=== PATIENT | male | born 1940 | race Caucasian/White ===

== ENCOUNTER 2021-03-02 17:50 | Inpatient (IN) | payer MEDICARE ==
[~2021-03-02 17:50] MED LIST: Iopamidol-370 76% 500 ML 1 ML ONE
[2021-03-02 18:50] LABS: #Eosinphils 0.1 thou/uL (0.0-0.7); #Lymphocytes 1.2 thou/uL (1.20-3.40); #Monocytes 0.4 thou/uL (0.11-0.59); %Basophils 0.4 % (0.0-1.0); %Eosinophils 1.4 % (0.0-10.0); %Lymphocytes 21.3 % (21.0-51.0); %Monocytes 6.6 % (0.0-10.0); %Neutrophils 70.4 % (42.0-75.0); Hemoglobin 12.8 g/dL (14.0-18.0); Mean Corpuscular HGB CONC 32.7 g/dL (32.0-36.0); Mean Corpuscular Hemoglobin 34.1 pg (27.0-31.0); Platelet Count 194 thou/uL (130-400); RBC Distribution Width 12.5 % (11.5-14.5); Red Blood Cell (RBC) Count 3.76 mill/uL (4.70-6.10); White Blood Cell (WBC) Count 5.7 thou/uL (4.8-10.8)
[2021-03-02 19:08] LABS: ALT (SGPT) 7 U/L (8-55); AST (SGOT) 10 U/L (5-34); Albumin 3.1 g/dL (3.4-4.8); Alkaline Phosphatase 70 U/L (40-110); Anion Gap 10 mmol/L (10-20); BUN (Urea Nitrogen) 14 mg/dL (8.4-25.7); Bilirubin, Total 0.8 mg/dL (0.2-1.2); Calc. Creatinine Clearance 0 mL/min (70-130); Calcium 8.5 mg/dL (7.8-10.44); Carbon Dioxide 28 mmol/L (23-31); Chloride 109 mmol/L (98-107); Globulin 2.7 g/dL (2.4-3.5); Glucose 110 mg/dL (83-110); Potassium 4.2 mmol/L (3.5-5.1); Protein, Total 5.8 g/dL (5.8-8.1); Sodium 143 mmol/L (136-145)
[2021-03-02] MEDS ORDERED: Ondansetron PF 4 MG/2 ML Vial IVP PRN (21:22)
[2021-03-02] MEDS ORDERED: Ondansetron ODT 4 MG TAB PO PRN (21:22)
[2021-03-02] MEDS ORDERED: Acetaminophen 325 MG TAB PO PRN (21:22)
[2021-03-02 22:05] LABS: Troponin I 0.017 ng/mL (< 0.028)
[2021-03-02 22:11] VITALS: BMI 16.8
[2021-03-03 00:03] LABS: Hemoglobin A1c 5.2 % (4.0-6.0)
[2021-03-03 00:39] LABS: Thyroid Stimulating Hormone 0.9995 uIU/mL (0.35-4.94)
[2021-03-03 05:44] LABS: #Eosinphils 0.1 thou/uL (0.0-0.7); #Lymphocytes 1.4 thou/uL (1.20-3.40); #Monocytes 0.4 thou/uL (0.11-0.59); #Neutrophils 3.1 thou/uL (1.40-6.50); %Basophils 0.6 % (0.0-1.0); %Eosinophils 1.7 % (0.0-10.0); %Lymphocytes 28.1 % (21.0-51.0); %Monocytes 7.5 % (0.0-10.0); Hemoglobin 11.5 g/dL (14.0-18.0); Mean Corpuscular HGB CONC 32.4 g/dL (32.0-36.0); Mean Corpuscular Hemoglobin 33.5 pg (27.0-31.0); Mean Platelet Volume 8.4 fL (7.4-10.4); Platelet Count 177 thou/uL (130-400); RBC Distribution Width 12.7 % (11.5-14.5); Red Blood Cell (RBC) Count 3.44 mill/uL (4.70-6.10)
[2021-03-03 06:03] LABS: Anion Gap 11 mmol/L (10-20); BUN (Urea Nitrogen) 12 mg/dL (8.4-25.7); Calc. Creatinine Clearance 66 mL/min (70-130); Calcium 8.1 mg/dL (7.8-10.44); Carbon Dioxide 22 mmol/L (23-31); Cardiac Risk 4.4 (Less than 4.5); Chloride 111 mmol/L (98-107); Cholesterol 168 mg/dl (< 200 Desired); Glucose 102 mg/dL (83-110); HDL Cholesterol 38 mg/dL (>60 Neg Risk); LDL Cholesterol, Calculated 115 mg/dL; Potassium 3.9 mmol/L (3.5-5.1); Sodium 140 mmol/L (136-145); Triglycerides 73 mg/dL (Less than 150)
[2021-03-03] MEDS ORDERED: Folic Acid 1 MG TAB PO SCH (09:00)
[2021-03-03] MEDS ORDERED: Cyanocobalamin (Vitamin B-12) 1,000 MCG TAB PO SCH (09:00)
[2021-03-03] MEDS ORDERED: Enoxaparin Sodium 40 MG/0.4 ML SYRINGE SC SCH (09:00)
[2021-03-03] MEDS: Folic Acid/Vit B Comp W-C PO SCH (09:21)
[2021-03-03] MEDS ORDERED: Lidocaine 1% (PF) 30 ML VIAL ONE (10:37)
[2021-03-03 11:52] LABS: SARS-CoV-2 PCR by NAA Not Detected (NotDetected)
[2021-03-03 12:13] LABS: Fluid, Triglycerides 12 mg/dL (Not Available); Pleural Fluid, Amylase Less than 30 U/L (Not Available); Pleural Fluid, Glucose 101 mg/dL; Pleural Fluid, LDH 83 U/L (Not Available); Pleural Fluid, Protein 2.9 g/dL
[2021-03-03 12:21] LABS: RBC Count-Automated (BF) 5170 /cu.mm; WBC/Nucleated-Auto (BF) 617 uL
[2021-03-03 12:27] LABS: Body Fluid Source Pleural Fluid
[2021-03-03 12:28] LABS: BF Color Yellow; Clarity Hazy (Clear); Tube # EDTA
[2021-03-03 12:37] LABS: BF Segmented Neutrophils 18 %; Cell Count Non Hematic 18 %; Lymphocytes 63 %
[2021-03-03] MEDS ORDERED: hydrALAZINE 20 MG/ML VIAL SLOW IVP PRN (17:11)
[2021-03-04 06:07] LABS: ALT (SGPT) Less than 7 U/L (8-55); AST (SGOT) 11 U/L (5-34); Albumin 2.8 g/dL (3.4-4.8); Alkaline Phosphatase 68 U/L (40-110); Anion Gap 11 mmol/L (10-20); BUN (Urea Nitrogen) 9 mg/dL (8.4-25.7); Bilirubin, Total 1.2 mg/dL (0.2-1.2); Calc. Creatinine Clearance 62 mL/min (70-130); Calcium 8.3 mg/dL (7.8-10.44); Carbon Dioxide 24 mmol/L (23-31); Chloride 106 mmol/L (98-107); Globulin 2.4 g/dL (2.4-3.5); Glucose 104 mg/dL (83-110); Potassium 3.7 mmol/L (3.5-5.1); Protein, Total 5.2 g/dL (5.8-8.1); Sodium 137 mmol/L (136-145)
[2021-03-04] MEDS: Enoxaparin Sodium 30 MG/0.3 ML SYRINGE SC SCH (09:26)
[2021-03-04] MEDS: Folic Acid/Vit B Comp W-C PO SCH (09:27)
[2021-03-05] MEDS ORDERED: Lactated Ringer's 500 ML IV SCH (09:00)
[2021-03-05] MEDS ORDERED: FLU VACC QS2021-22(65YR UP)/PF 240 MCG/0.7 ML SYRINGE IM ONE (09:00)
[2021-03-05] MEDS: Folic Acid/Vit B Comp W-C PO SCH (09:43)
[2021-03-05] MEDS: Enoxaparin Sodium 30 MG/0.3 ML SYRINGE SC SCH (09:44)
[2021-03-05 12:28] VITALS: BP 113/87; TEMP 97.6
== END 2021-03-05 15:31 | disposition home or self-care (01) | DRG 187 ==
LOC: ERS 17:50 → 2NO 20:42
PROVIDERS: ADMIT Family Medicine; ATTEND Family Medicine
PROC: 0W9B3ZX Drainage of Left Pleural Cavity, Percutaneous Approach, Diagnostic (ICD-10-PCS; principal; 2021-03-03)
DX: J90 Pleural effusion, not elsewhere classified (principal); R64 Cachexia; Z68.1 Body mass index [BMI] 19.9 or less, adult; I49.1 Atrial premature depolarization; F17.210 Nicotine dependence, cigarettes, uncomplicated; D51.9 Vitamin B12 deficiency anemia, unspecified; I65.22 Occlusion and stenosis of left carotid artery; Z20.822 Contact with and (suspected) exposure to COVID-19; J44.9 Chronic obstructive pulmonary disease, unspecified; R91.8 Other nonspecific abnormal finding of lung field; Z80.1 Family history of malignant neoplasm of trachea, bronchus and lung; Z82.49 Family history of ischemic heart disease and other diseases of the circulatory system; Z86.718 Personal history of other venous thrombosis and embolism
CPT/HCPCS: 36415; 71045; 71275; 80048; 80053; 80061; 82150; 82607; 82746; 82945; 83036; 83605; 83615; 83880; 83986; 84157; 84443; 84478; 84484; 85025; 85060; 85379; 87040; 87070; 87116; 87205; 87206; 88112; 88305; 88341; 88342; 89051; 93005; 93010; 93306; 93880; J1650; J2001; J7120; Q9967; U0003; U0005

== ENCOUNTER 2021-03-25 10:11 | Outpatient (CLI) | payer MEDICARE ==
[2021-03-25 12:30] LABS: Hemoglobin 13.6 g/dL (13.5-17.5); Mean Corpuscular HGB CONC 32.8 g/dL (32.0-36.0); Mean Corpuscular Hemoglobin 32.8 pg (27.0-33.0); Platelet Count 248 10x3/uL (150-450); RBC Distribution Width 13.1 % (11.5-14.5); Red Blood Cell (RBC) Count 4.15 10x6/uL (4.32-5.72); White Blood Cell (WBC) Count 7.5 10x3/uL (3.5-10.5)
[2021-03-25 12:45] LABS: Anion Gap 12 mmol/L (10-20); BUN (Urea Nitrogen) 21 mg/dL (8.4-25.7); Calc. Creatinine Clearance 0 mL/min (70-130); Calcium 9.2 mg/dL (7.8-10.44); Carbon Dioxide 29 mmol/L (23-31); Chloride 104 mmol/L (98-107); Glucose 101 mg/dL (83-110); Potassium 4.8 mmol/L (3.5-5.1); Sodium 140 mmol/L (136-145)
[2021-03-25 19:12] LABS: SARS-CoV-2 PCR by NAA Not Detected (NotDetected)
== END 2021-03-25 10:12 | disposition home or self-care (01) ==
LOC: LABBT 10:11
PROVIDERS: ATTEND Internal Medicine Critical Care Medicine
DX: Z01.812 Encounter for preprocedural laboratory examination (principal); Z20.822 Contact with and (suspected) exposure to COVID-19
CPT/HCPCS: 80048; 85027; U0003; U0005

== ENCOUNTER 2021-03-28 06:50 | Day surgery (SDC) | payer MEDICARE, OTHER ==
[2021-03-25 11:17] VITALS: BMI 16.8
[2021-03-28] MEDS ORDERED: Fentanyl 100 MCG/2 ML VIAL ONE (09:21)
[2021-03-28] MEDS ORDERED: PHENYLEPHRINE-NS 100 MCG/ML 10 ML SYRINGE ONE (11:02)
[2021-03-28] MEDS ORDERED: Glycopyrrolate 0.2 MG/ML 5 ML SYRINGE ONE (11:02)
[2021-03-28] MEDS ORDERED: PROPOFOL 200 MG/20 ML VIAL ONE (11:02)
[2021-03-28] MEDS ORDERED: Rocuronium Bromide 10 MG/ML (10ML VIAL) ONE (11:02)
[2021-03-28] MEDS ORDERED: Lidocaine 1% PF 5 ML VIAL ONE (11:02)
[2021-03-28] MEDS ORDERED: SUGAMMADEX SODIUM 200 MG/2 ML VIAL ONE (11:21)
== END 2021-03-28 13:05 | disposition home or self-care (01) ==
LOC: SDC 06:50
PROVIDERS: ATTEND Internal Medicine Critical Care Medicine
PROC: 0BDL8ZX Extraction of Left Lung, Via Natural or Artificial Opening Endoscopic, Diagnostic (ICD-10-PCS; principal; 2021-03-28)
PROC: 0BBG8ZX Excision of Left Upper Lung Lobe, Via Natural or Artificial Opening Endoscopic, Diagnostic (ICD-10-PCS; 2021-03-28)
DX: C34.12 Malignant neoplasm of upper lobe, left bronchus or lung (principal); F17.210 Nicotine dependence, cigarettes, uncomplicated; J44.9 Chronic obstructive pulmonary disease, unspecified
CPT/HCPCS: 88112; 88305; 88341; 88342; J2704; J3010

== ENCOUNTER 2021-04-07 09:56 | Outpatient (CLI) | payer MEDICARE, OTHER | END 2021-04-07 09:57 | disposition home or self-care (01) | LOC: PET 09:56 | PROVIDERS: ATTEND Internal Medicine Hematology & Oncology | DX: C34.82 Malignant neoplasm of overlapping sites of left bronchus and lung (principal); J90 Pleural effusion, not elsewhere classified; R59.0 Localized enlarged lymph nodes; I71.4 Abdominal aortic aneurysm, without rupture | CPT/HCPCS: 78815; A9552 ==

== ENCOUNTER 2021-05-10 12:27 | Outpatient (CLI) | payer MEDICARE, OTHER ==
[2021-05-10 14:19] LABS: #Eosinphils 0.2 10x3/uL (0.0-0.5); #Monocytes 0.5 10x3/uL (0.0-1.1); #Neutrophils 4.8 10x3/uL (1.5-8.4); %Basophils 0.6 % (0.0-2.0); %Eosinophils 2.2 % (0.0-6.0); %Lymphocytes 23.1 % (18.0-47.0); %Monocytes 7.2 % (0.0-10.0); %Neutrophils 66.6 % (40.0-75.0); Hemoglobin 12.6 g/dL (13.5-17.5); Mean Corpuscular HGB CONC 32.4 g/dL (32.0-36.0); Mean Corpuscular Hemoglobin 31.9 pg (27.0-33.0); Mean Corpuscular Volume 98.5 fl (81.2-95.1); Mean Platelet Volume 10.8 fl (7.4-10.4); Platelet Count 217 10x3/uL (150-450); RBC Distribution Width 12.5 % (11.5-14.5); Red Blood Cell (RBC) Count 3.95 10x6/uL (4.32-5.72); White Blood Cell (WBC) Count 7.2 10x3/uL (3.5-10.5)
[2021-05-10 14:25] LABS: Anion Gap 10 mmol/L (10-20); BUN (Urea Nitrogen) 31 mg/dL (8.4-25.7); Calc. Creatinine Clearance 0 mL/min (70-130); Calcium 9.2 mg/dL (7.8-10.44); Carbon Dioxide 31 mmol/L (23-31); Chloride 102 mmol/L (98-107); Glucose 107 mg/dL (83-110); Potassium 4.4 mmol/L (3.5-5.1); Sodium 139 mmol/L (136-145)
[2021-05-11 12:50] LABS: SARS-CoV-2 PCR by NAA Not Detected (NotDetected)
== END 2021-05-10 12:28 | disposition home or self-care (01) ==
LOC: LABBT 12:27
PROVIDERS: ATTEND Surgery
DX: Z01.812 Encounter for preprocedural laboratory examination (principal); C34.90 Malignant neoplasm of unspecified part of unspecified bronchus or lung; Z20.822 Contact with and (suspected) exposure to COVID-19
CPT/HCPCS: 80048; 85025; U0003; U0005

== ENCOUNTER 2021-05-13 08:42 | Day surgery (SDC) | payer MEDICARE, OTHER ==
[2021-05-09 13:10] VITALS: BMI 16.9
[2021-05-13] MEDS ORDERED: ceFAZolin 2 GM/DEX 5% 100 ML BAG ONE (09:27)
[2021-05-13] MEDS ORDERED: Bupivacaine PF 0.5% 30 ML VIAL ONE (11:03)
[2021-05-13] MEDS ORDERED: EPINEPHrine 1 MG/ML AMP ONE (11:03)
[2021-05-13] MEDS ORDERED: Fentanyl 100 MCG/2 ML VIAL ONE (11:09)
[2021-05-13] MEDS ORDERED: Famotidine/PF 20 mg/2ml Vial ONE (11:09)
[2021-05-13] MEDS ORDERED: Phenylephrine 10 MG/ML VIAL ONE (11:27)
[2021-05-13] MEDS ORDERED: Ondansetron PF 4 MG/2 ML Vial ONE (11:27)
[2021-05-13] MEDS ORDERED: Lidocaine 1% PF 5 ML VIAL ONE (11:27)
[2021-05-13] MEDS ORDERED: Metoclopramide HCl 10 MG/2 ML VIAL ONE (11:27)
== END 2021-05-13 13:31 | disposition home or self-care (01) ==
LOC: SDC 08:42
PROVIDERS: ATTEND Surgery
PROC: 0JH63WZ Insertion of Totally Implantable Vascular Access Device into Chest Subcutaneous Tissue and Fascia, Percutaneous Approach (ICD-10-PCS; principal; 2021-05-13)
PROC: 02HV33Z Insertion of Infusion Device into Superior Vena Cava, Percutaneous Approach (ICD-10-PCS; 2021-05-13)
DX: C34.91 Malignant neoplasm of unspecified part of right bronchus or lung (principal); C34.92 Malignant neoplasm of unspecified part of left bronchus or lung; C77.1 Secondary and unspecified malignant neoplasm of intrathoracic lymph nodes; J44.9 Chronic obstructive pulmonary disease, unspecified; Z87.891 Personal history of nicotine dependence
CPT/HCPCS: 36561; 71045; C1788; J0171; J1642; J2370; J2405; J2765; J3010; S0020; S0028

== ENCOUNTER 2021-05-24 09:12 | Inpatient (IN) | payer MEDICARE, OTHER ==
[2021-05-24 10:50] LABS: Prothrombin Time 12.8 sec (12.0-14.7)
[2021-05-24 10:51] LABS: PTT 34.7 sec (22.9-36.1)
[2021-05-24 11:02] LABS: ALT (SGPT) 18 U/L (8-55); AST (SGOT) 23 U/L (5-34); Albumin 3.2 g/dL (3.4-4.8); Alkaline Phosphatase 69 U/L (40-110); Anion Gap 12 mmol/L (10-20); BUN (Urea Nitrogen) 29 mg/dL (8.4-25.7); Bilirubin, Total 0.9 mg/dL (0.2-1.2); Calc. Creatinine Clearance 0 mL/min (70-130); Calcium 8.2 mg/dL (7.8-10.44); Carbon Dioxide 30 mmol/L (23-31); Chloride 100 mmol/L (98-107); Globulin 2.8 g/dL (2.4-3.5); Glucose 131 mg/dL (83-110); Potassium 3.7 mmol/L (3.5-5.1); Sodium 138 mmol/L (136-145)
[2021-05-24 11:10] LABS: Band 7 % (5-11); Lymphocytes 18 % (21-51); MDiff Complete? YES; Mean Corpuscular HGB CONC 32.5 g/dL (32.0-36.0); Mean Corpuscular Hemoglobin 31.5 pg (27.0-31.0); Mean Platelet Volume 8.5 fL (7.4-10.4); Monocytes 1 % (0-10); Neutrophil 67 % (42-75); Platelet Count 105 thou/uL (130-400); Platelet Morphology Comment Appears Decreased; RBC Distribution Width 11.5 % (11.5-14.5); RBC Morphology Normal; Reactive Lymphocytes 7 % (0-10); Red Blood Cell (RBC) Count 4.44 mill/uL (4.70-6.10); White Blood Cell (WBC) Count 1.4 thou/uL (4.8-10.8)
[2021-05-24] MEDS ORDERED: Cefepime 2 GM VIAL ONE ×2 (13:54)
[2021-05-24] MEDS ORDERED: Vancomycin 1 GM/200 ML BAG ONE (13:54)
[2021-05-24] MEDS ORDERED: Ondansetron PF 4 MG/2 ML Vial IVP PRN (13:57)
[2021-05-24] MEDS ORDERED: Ondansetron ODT 4 MG TAB PO PRN (13:57)
[2021-05-24] MEDS ORDERED: Ondansetron ODT 8 MG TAB PO PRN (14:40)
[2021-05-24] MEDS ORDERED: Prochlorperazine Maleate 5 MG TAB PO PRN (14:40)
[2021-05-24 18:42] LABS: SARS-CoV-2 NAA Rapid Test DETECTED (NotDetected)
[2021-05-25] MEDS: Lactated Ringer's 1,000 ML IV SCH ×4 (00:56→14:01)
[2021-05-25 07:36] LABS: #Lymphocytes 0.5 thou/uL (1.20-3.40); #Neutrophils 0.8 thou/uL (1.40-6.50); %Basophils 0.6 % (0.0-1.0); %Eosinophils 1.3 % (0.0-10.0); %Neutrophils 58.1 % (42.0-75.0); Hemoglobin 13.3 g/dL (14.0-18.0); Mean Corpuscular HGB CONC 33.6 g/dL (32.0-36.0); Mean Corpuscular Hemoglobin 32.4 pg (27.0-31.0); Mean Corpuscular Volume 96.4 fL (78.0-98.0); Mean Platelet Volume 8.6 fL (7.4-10.4); Platelet Count 73 thou/uL (130-400); RBC Distribution Width 11.5 % (11.5-14.5); White Blood Cell (WBC) Count 1.4 thou/uL (4.8-10.8)
[2021-05-25 07:50] LABS: ALT (SGPT) 13 U/L (8-55); AST (SGOT) 24 U/L (5-34); Albumin 2.7 g/dL (3.4-4.8); Alkaline Phosphatase 58 U/L (40-110); Anion Gap 11 mmol/L (10-20); BUN (Urea Nitrogen) 20 mg/dL (8.4-25.7); Bilirubin, Total 0.8 mg/dL (0.2-1.2); Calc. Creatinine Clearance 57 mL/min (70-130); Calcium 7.9 mg/dL (7.8-10.44); Carbon Dioxide 27 mmol/L (23-31); Chloride 102 mmol/L (98-107); Globulin 2.9 g/dL (2.4-3.5); Glucose 106 mg/dL (83-110); Potassium 3.3 mmol/L (3.5-5.1); Protein, Total 5.6 g/dL (5.8-8.1); Sodium 137 mmol/L (136-145)
[2021-05-25] MEDS ORDERED: Enoxaparin Sodium 40 MG/0.4 ML SYRINGE SC SCH (09:00)
[2021-05-25] MEDS ORDERED: FLU VACC QS2021-22(65YR UP)/PF 240 MCG/0.7 ML SYRINGE IM ONE (09:00)
[2021-05-25] MEDS ORDERED: Potassium Chloride 20 MEQ TAB PO SCH (09:15)
[2021-05-25 09:39] LABS: Magnesium 1.4 mg/dL (1.6-2.6)
[2021-05-25 09:41] LABS: Phosphorus 1.6 mg/dL (2.3-4.7)
[2021-05-25] MEDS ORDERED: Magnesium 2 GM/50 ML 2 GM in Premix Bag 1 BAG IVPB SCH (10:30)
[2021-05-25] MEDS ORDERED: Potassium Phosphate 12 MMOL in Sodium Chloride 0.9% 100 ML IVPB SCH (10:30)
[2021-05-25] MEDS: Folic Acid 1 MG TAB PO SCH (10:47)
[2021-05-25] MEDS ORDERED: Megestrol Acetate 800 MG/20 ML UDCUP PO SCH (11:45)
[2021-05-25] MEDS ORDERED: predniSONE 20 MG TAB PO SCH (11:45)
[2021-05-25] MEDS ORDERED: prednisoLONE 10 MG ODT TAB PO SCH (12:00)
[2021-05-25] MEDS ORDERED: Megestrol Acetate 40 MG TAB PO SCH (15:00)
[2021-05-26] MEDS: Lactated Ringer's 1,000 ML IV SCH ×5 (04:35→21:32)
[2021-05-26 06:30] LABS: #Lymphocytes 0.6 thou/uL (1.20-3.40); %Basophils 0.9 % (0.0-1.0); %Eosinophils 0.7 % (0.0-10.0); %Lymphocytes 37.4 % (21.0-51.0); %Monocytes 0.9 % (0.0-10.0); %Neutrophils 60.2 % (42.0-75.0); Hemoglobin 13.2 g/dL (14.0-18.0); Mean Corpuscular HGB CONC 33.4 g/dL (32.0-36.0); Mean Corpuscular Hemoglobin 32.1 pg (27.0-31.0); Mean Platelet Volume 9.2 fL (7.4-10.4); Platelet Count 57 thou/uL (130-400); RBC Distribution Width 11.6 % (11.5-14.5); Red Blood Cell (RBC) Count 4.12 mill/uL (4.70-6.10); White Blood Cell (WBC) Count 1.7 thou/uL (4.8-10.8)
[2021-05-26 06:40] LABS: ALT (SGPT) 13 U/L (8-55); AST (SGOT) 28 U/L (5-34); Albumin 2.6 g/dL (3.4-4.8); Alkaline Phosphatase 58 U/L (40-110); Anion Gap 15 mmol/L (10-20); BUN (Urea Nitrogen) 19 mg/dL (8.4-25.7); Bilirubin, Total 0.7 mg/dL (0.2-1.2); Calc. Creatinine Clearance 59 mL/min (70-130); Calcium 8.1 mg/dL (7.8-10.44); Carbon Dioxide 21 mmol/L (23-31); Chloride 101 mmol/L (98-107); Globulin 3.1 g/dL (2.4-3.5); Glucose 109 mg/dL (83-110); Potassium 3.6 mmol/L (3.5-5.1); Protein, Total 5.7 g/dL (5.8-8.1); Sodium 133 mmol/L (136-145)
[2021-05-26] MEDS ORDERED: predniSONE 20 MG TAB PO SCH (08:00)
[2021-05-26] MEDS: Folic Acid 1 MG TAB PO SCH ×2 (08:43→09:02)
[2021-05-26] MEDS: Megestrol Acetate 800 MG/20 ML UDCUP PO SCH ×2 (08:43→09:02)
[2021-05-26] MEDS: prednisoLONE 10 MG ODT TAB PO SCH ×2 (08:43→09:02)
[2021-05-26 08:56] LABS: Magnesium 2.1 mg/dL (1.6-2.6)
[2021-05-26 09:02] LABS: Phosphorus 1.4 mg/dL (2.3-4.7)
[2021-05-26] MEDS ORDERED: Magnesium 2 GM/50 ML 2 GM in Premix Bag 1 BAG IVPB SCH (09:30)
[2021-05-26] MEDS ORDERED: Potassium Phosphate 22 MMOL in Sodium Chloride 0.9% 250 ML 250 ML IVPB SCH (09:45)
[2021-05-26] MEDS ORDERED: Guaifenesin DM 100-10/5 ML UDCUP PO PRN (10:51)
[2021-05-26] MEDS: Mometasone 200 MCG/Formoterol 5 MCG 120 PUFF INHALER INH SCH ×3 (11:05→18:43)
[2021-05-26] MEDS: PHOS-NAK 1 PKT PACK PO SCH ×2 (14:24→21:32)
[2021-05-26] MEDS ORDERED: Mometasone 200 MCG/Formoterol 5 MCG 120 PUFF INHALER INH SCH (18:30)
[2021-05-27] MEDS: Mometasone 200 MCG/Formoterol 5 MCG 120 PUFF INHALER INH SCH ×2 (06:20→18:30)
[2021-05-27] MEDS: Lactated Ringer's 1,000 ML IV SCH ×3 (06:20→20:42)
[2021-05-27] MEDS: PHOS-NAK 1 PKT PACK PO SCH ×4 (08:52→20:54)
[2021-05-27] MEDS: prednisoLONE 10 MG ODT TAB PO SCH (08:52)
[2021-05-27] MEDS: Folic Acid 1 MG TAB PO SCH (08:52)
[2021-05-27] MEDS: Megestrol Acetate 800 MG/20 ML UDCUP PO SCH (08:52)
[2021-05-27 09:22] LABS: Hemoglobin 10.9 g/dL (14.0-18.0); Mean Corpuscular HGB CONC 33.7 g/dL (32.0-36.0); Mean Corpuscular Hemoglobin 32.3 pg (27.0-31.0); Mean Corpuscular Volume 95.6 fL (78.0-98.0); Mean Platelet Volume 10.3 fL (7.4-10.4); Platelet Count 27 thou/uL (130-400); RBC Distribution Width 11.4 % (11.5-14.5); Red Blood Cell (RBC) Count 3.38 mill/uL (4.70-6.10); White Blood Cell (WBC) Count 1.2 thou/uL (4.8-10.8)
[2021-05-27 09:30] LABS: ALT (SGPT) 12 U/L (8-55); AST (SGOT) 22 U/L (5-34); Albumin 2.3 g/dL (3.4-4.8); Alkaline Phosphatase 45 U/L (40-110); Anion Gap 13 mmol/L (10-20); BUN (Urea Nitrogen) 22 mg/dL (8.4-25.7); Bilirubin, Total 0.7 mg/dL (0.2-1.2); Calc. Creatinine Clearance 63 mL/min (70-130); Calcium 7.6 mg/dL (7.8-10.44); Carbon Dioxide 25 mmol/L (23-31); Chloride 99 mmol/L (98-107); Globulin 2.5 g/dL (2.4-3.5); Glucose 102 mg/dL (83-110); Protein, Total 4.8 g/dL (5.8-8.1); Sodium 134 mmol/L (136-145)
[2021-05-27 09:33] LABS: Potassium 2.9 mmol/L (3.5-5.1)
[2021-05-27] MEDS ORDERED: Potassium Phosphate 30 MMOL in Sodium Chloride 0.9% 500 ML IVPB SCH (10:30)
[2021-05-27 10:40] LABS: Band 4 % (5-11); Lymphocytes 34 % (21-51); MDiff Complete? YES; Monocytes 4 % (0-10); Neutrophil 34 % (42-75); Ovalocytes SLIGHT = 2-5 cells (100X) (0-1/hpf); Platelet Morphology Comment Appears Decreased; Polychromasia SLIGHT = 2-3 cells (100X) (0-2/hpf); Reactive Lymphocytes 24 % (0-10)
[2021-05-27 11:07] LABS: Magnesium 1.8 mg/dL (1.6-2.6)
[2021-05-27] MEDS: Potassium Chloride 10 MEQ in Premix Bag 1 BAG IVPB SCH ×4 (11:19→16:59)
[2021-05-27 11:20] LABS: Phosphorus 1.5 mg/dL (2.3-4.7)
[2021-05-27] MEDS ORDERED: Magnesium 2 GM/50 ML 2 GM in Premix Bag 1 BAG IVPB SCH (14:45)
[2021-05-27 17:45] LABS: ALT (SGPT) 11 U/L (8-55); AST (SGOT) 22 U/L (5-34); Albumin 2.4 g/dL (3.4-4.8); Alkaline Phosphatase 44 U/L (40-110); Anion Gap 10 mmol/L (10-20); BUN (Urea Nitrogen) 24 mg/dL (8.4-25.7); Bilirubin, Total 0.5 mg/dL (0.2-1.2); Calc. Creatinine Clearance 66 mL/min (70-130); Calcium 7.7 mg/dL (7.8-10.44); Carbon Dioxide 27 mmol/L (23-31); Chloride 100 mmol/L (98-107); Globulin 2.4 g/dL (2.4-3.5); Glucose 116 mg/dL (83-110); Protein, Total 4.8 g/dL (5.8-8.1); Sodium 133 mmol/L (136-145)
[2021-05-27 17:58] LABS: Phosphorus 3.4 mg/dL (2.3-4.7)
[2021-05-27 18:45] LABS: Magnesium 1.5 mg/dL (1.6-2.6)
[2021-05-27] MEDS: Acetaminophen 500 MG TAB PO SCH ×2 (20:41→20:53)
[2021-05-27] MEDS ORDERED: Acetaminophen 650 MG Suppository PR SCH (21:15)
[2021-05-27] MEDS ORDERED: Pantoprazole 40 MG VIAL IVP SCH (22:30)
[2021-05-28] MEDS ORDERED: Acetaminophen 650 MG Suppository PR SCH (01:45)
[2021-05-28 03:03] LABS: #Lymphocytes 0.3 thou/uL (1.20-3.40); #Monocytes 0.1 thou/uL (0.11-0.59); #Neutrophils 0.9 thou/uL (1.40-6.50); %Eosinophils 1.2 % (0.0-10.0); %Lymphocytes 22.9 % (21.0-51.0); %Monocytes 5.4 % (0.0-10.0); %Neutrophils 70.5 % (42.0-75.0); Hemoglobin 8.3 g/dL (14.0-18.0); Mean Corpuscular HGB CONC 33.8 g/dL (32.0-36.0); Mean Corpuscular Hemoglobin 32.6 pg (27.0-31.0); Mean Corpuscular Volume 96.7 fL (78.0-98.0); Platelet Count 17 thou/uL (130-400); RBC Distribution Width 11.5 % (11.5-14.5); Red Blood Cell (RBC) Count 2.53 mill/uL (4.70-6.10); White Blood Cell (WBC) Count 1.2 thou/uL (4.8-10.8)
[2021-05-28 03:30] LABS: ALT (SGPT) 11 U/L (8-55); AST (SGOT) 20 U/L (5-34); Albumin 2.1 g/dL (3.4-4.8); Alkaline Phosphatase 39 U/L (40-110); Anion Gap 15 mmol/L (10-20); BUN (Urea Nitrogen) 35 mg/dL (8.4-25.7); Bilirubin, Total 0.5 mg/dL (0.2-1.2); Calc. Creatinine Clearance 55 mL/min (70-130); Calcium 7.3 mg/dL (7.8-10.44); Carbon Dioxide 25 mmol/L (23-31); Chloride 100 mmol/L (98-107); Globulin 2.1 g/dL (2.4-3.5); Glucose 150 mg/dL (83-110); Potassium 3.8 mmol/L (3.5-5.1); Protein, Total 4.2 g/dL (5.8-8.1); Sodium 136 mmol/L (136-145)
[2021-05-28] MEDS ORDERED: Acetaminophen 325 MG/10.15 ML UDCUP PO PRN (06:10)
[2021-05-28] MEDS ORDERED: Acetaminophen 325 MG Suppository PR PRN (06:10)
[2021-05-28] MEDS: Mometasone 200 MCG/Formoterol 5 MCG 120 PUFF INHALER INH SCH ×2 (06:22→20:54)
[2021-05-28] MEDS: Lactated Ringer's 1,000 ML IV SCH ×3 (06:22→15:38)
[2021-05-28 07:35] LABS: Hemoglobin 7.9 g/dL (14.0-18.0); Platelet Count 60 thou/uL (130-400)
[2021-05-28] MEDS ORDERED: TBO-Filgrastim 300 MCG/0.5 ML VIAL SC SCH (08:45)
[2021-05-28] MEDS: Pantoprazole 40 MG VIAL IVP SCH ×2 (10:10→21:10)
[2021-05-28] MEDS: PHOS-NAK 1 PKT PACK PO SCH ×3 (10:10→21:10)
[2021-05-28] MEDS: Folic Acid 1 MG TAB PO SCH (10:11)
[2021-05-28] MEDS: Megestrol Acetate 800 MG/20 ML UDCUP PO SCH (10:11)
[2021-05-28] MEDS: prednisoLONE 10 MG ODT TAB PO SCH (10:36)
[2021-05-28 17:04] LABS: Hemoglobin 6.9 g/dL (14.0-18.0); Platelet Count 48 thou/uL (130-400)
[2021-05-29] MEDS: Lactated Ringer's 1,000 ML IV SCH ×3 (05:19→21:45)
[2021-05-29 05:34] LABS: Hemoglobin 7.9 g/dL (14.0-18.0); Platelet Count 76 thou/uL (130-400)
[2021-05-29 05:53] LABS: Hemoglobin 7.7 g/dL (14.0-18.0); Hypochromia SLIGHT = 6-15 cells (100X) (0-5/hpf); Lymphocytes 36 % (21-51); MDiff Complete? YES; Mean Corpuscular HGB CONC 33.9 g/dL (32.0-36.0); Mean Corpuscular Hemoglobin 32.1 pg (27.0-31.0); Mean Corpuscular Volume 94.7 fL (78.0-98.0); Mean Platelet Volume 7.4 fL (7.4-10.4); Neutrophil 64 % (42-75); Platelet Count 75 thou/uL (130-400); Platelet Morphology Comment Appears Decreased; RBC Distribution Width 12.2 % (11.5-14.5); White Blood Cell (WBC) Count 1.1 thou/uL (4.8-10.8)
[2021-05-29] MEDS: Mometasone 200 MCG/Formoterol 5 MCG 120 PUFF INHALER INH SCH ×2 (05:58→20:37)
[2021-05-29 05:59] LABS: ALT (SGPT) 13 U/L (8-55); AST (SGOT) 24 U/L (5-34); Albumin 2.3 g/dL (3.4-4.8); Alkaline Phosphatase 41 U/L (40-110); Anion Gap 8 mmol/L (10-20); BUN (Urea Nitrogen) 29 mg/dL (8.4-25.7); Bilirubin, Total 1.5 mg/dL (0.2-1.2); Calc. Creatinine Clearance 60 mL/min (70-130); Calcium 7.6 mg/dL (7.8-10.44); Carbon Dioxide 27 mmol/L (23-31); Chloride 107 mmol/L (98-107); Globulin 2.2 g/dL (2.4-3.5); Glucose 108 mg/dL (83-110); Potassium 3.2 mmol/L (3.5-5.1); Protein, Total 4.5 g/dL (5.8-8.1); Sodium 139 mmol/L (136-145)
[2021-05-29] MEDS ORDERED: Magnesium 2 GM/50 ML 2 GM in Premix Bag 1 BAG IVPB SCH (07:00)
[2021-05-29] MEDS ORDERED: Potassium Phosphate 30 MMOL in Sodium Chloride 0.9% 250 ML 250 ML IVPB SCH (07:30)
[2021-05-29] MEDS: Folic Acid 1 MG TAB PO SCH (08:40)
[2021-05-29] MEDS: PHOS-NAK 1 PKT PACK PO SCH ×3 (08:40→21:46)
[2021-05-29] MEDS: prednisoLONE 10 MG ODT TAB PO SCH (08:40)
[2021-05-29] MEDS: Megestrol Acetate 800 MG/20 ML UDCUP PO SCH (08:40)
[2021-05-29] MEDS: Pantoprazole 40 MG VIAL IVP SCH ×2 (08:40→21:46)
[2021-05-29] MEDS: Polyethylene Glycol 3350 17 GM Packet PO SCH (08:40)
[2021-05-29] MEDS: Multivitamins CHEW w/Iron Tablet PO SCH (08:40)
[2021-05-29] MEDS ORDERED: Calcium Chloride 1 GM/10 ML Abboject SYRINGE IVP SCH (09:15)
[2021-05-29 13:34] LABS: Hemoglobin 8.1 g/dL (14.0-18.0); Platelet Count 81 thou/uL (130-400)
[2021-05-29] MEDS: Amino Acids 4.25 %/Dextrose 5% 1,000 ML IV SCH (22:56)
[2021-05-29 23:13] LABS: Hemoglobin 6.8 g/dL (14.0-18.0); Platelet Count 56 thou/uL (130-400)
[2021-05-30] MEDS: Mometasone 200 MCG/Formoterol 5 MCG 120 PUFF INHALER INH SCH ×2 (05:53→20:28)
[2021-05-30] MEDS ORDERED: Furosemide 20 MG/2 ML VIAL SLOW IVP SCH (09:00)
[2021-05-30] MEDS ORDERED: Potassium Chloride 20 MEQ in Premix Bag 1 BAG IVPB SCH ×3 (09:00→17:45)
[2021-05-30] MEDS: Pantoprazole 40 MG VIAL IVP SCH ×2 (09:18→21:20)
[2021-05-30] MEDS: Polyethylene Glycol 3350 17 GM Packet PO SCH (09:18)
[2021-05-30] MEDS: PHOS-NAK 1 PKT PACK PO SCH ×3 (09:18→21:20)
[2021-05-30] MEDS: Folic Acid 1 MG TAB PO SCH (09:18)
[2021-05-30] MEDS: Megestrol Acetate 800 MG/20 ML UDCUP PO SCH (09:18)
[2021-05-30] MEDS: prednisoLONE 10 MG ODT TAB PO SCH (09:18)
[2021-05-30] MEDS: Multivitamins CHEW w/Iron Tablet PO SCH (09:19)
[2021-05-30 09:49] LABS: Hemoglobin 8.5 g/dL (14.0-18.0); Platelet Count 47 thou/uL (130-400)
[2021-05-30 15:37] LABS: Hemoglobin 9.7 g/dL (14.0-18.0); Platelet Count 100 thou/uL (130-400)
[2021-05-30 15:57] LABS: Anion Gap 12 mmol/L (10-20); BUN (Urea Nitrogen) 20 mg/dL (8.4-25.7); Calc. Creatinine Clearance 54 mL/min (70-130); Calcium 8.3 mg/dL (7.8-10.44); Carbon Dioxide 28 mmol/L (23-31); Chloride 99 mmol/L (98-107); Glucose 104 mg/dL (83-110); Potassium 3.3 mmol/L (3.5-5.1); Sodium 136 mmol/L (136-145)
[2021-05-30 16:09] LABS: ALT (SGPT) 23 U/L (8-55); AST (SGOT) 39 U/L (5-34); Albumin 2.9 g/dL (3.4-4.8); Alkaline Phosphatase 56 U/L (40-110); Anion Gap 12 mmol/L (10-20); BUN (Urea Nitrogen) 20 mg/dL (8.4-25.7); Bilirubin, Total 0.8 mg/dL (0.2-1.2); Calc. Creatinine Clearance 52 mL/min (70-130); Calcium 8.3 mg/dL (7.8-10.44); Carbon Dioxide 28 mmol/L (23-31); Chloride 98 mmol/L (98-107); Glucose 105 mg/dL (83-110); Magnesium 1.4 mg/dL (1.6-2.6); Phosphorus 1.7 mg/dL (2.3-4.7); Potassium 3.2 mmol/L (3.5-5.1); Protein, Total 5.9 g/dL (5.8-8.1); Sodium 135 mmol/L (136-145)
[2021-05-30] MEDS: Amino Acids 4.25 %/Dextrose 5% 1,000 ML IV SCH (17:05)
[2021-05-30] MEDS ORDERED: Potassium Chloride 10 MEQ in Premix Bag 1 BAG IVPB SCH (18:00)
[2021-05-30] MEDS ORDERED: Morphine 4 MG/ML VIAL SLOW IVP SCH (22:00)
[2021-05-30 22:26] LABS: Hemoglobin 8.8 g/dL (14.0-18.0); Platelet Count 87 thou/uL (130-400)
[2021-05-30 22:49] LABS: ALT (SGPT) 24 U/L (8-55); AST (SGOT) 38 U/L (5-34); Albumin 2.6 g/dL (3.4-4.8); Alkaline Phosphatase 51 U/L (40-110); Anion Gap 11 mmol/L (10-20); BUN (Urea Nitrogen) 18 mg/dL (8.4-25.7); Bilirubin, Total 0.7 mg/dL (0.2-1.2); Calc. Creatinine Clearance 56 mL/min (70-130); Calcium 7.9 mg/dL (7.8-10.44); Carbon Dioxide 26 mmol/L (23-31); Chloride 99 mmol/L (98-107); Globulin 2.7 g/dL (2.4-3.5); Glucose 128 mg/dL (83-110); Lipase 7 U/L (8-78); Potassium 3.1 mmol/L (3.5-5.1); Protein, Total 5.3 g/dL (5.8-8.1); Sodium 133 mmol/L (136-145)
[2021-05-31] MEDS ORDERED: hydrOXYzine 10 MG TAB PO SCH (04:30)
[2021-05-31] MEDS: Mometasone 200 MCG/Formoterol 5 MCG 120 PUFF INHALER INH SCH (05:27)
[2021-05-31 06:15] LABS: Band 12 % (5-11); Hemoglobin 9.6 g/dL (14.0-18.0); Hypochromia SLIGHT = 6-15 cells (100X) (0-5/hpf); Lymphocytes 56 % (21-51); MDiff Complete? YES; Mean Corpuscular HGB CONC 35.3 g/dL (32.0-36.0); Mean Corpuscular Hemoglobin 32.6 pg (27.0-31.0); Mean Corpuscular Volume 92.5 fL (78.0-98.0); Mean Platelet Volume 7.3 fL (7.4-10.4); Monocytes 4 % (0-10); Neutrophil 28 % (42-75); Platelet Count 85 thou/uL (130-400); Platelet Morphology Comment Appears Decreased; RBC Distribution Width 12.8 % (11.5-14.5); Red Blood Cell (RBC) Count 2.94 mill/uL (4.70-6.10); White Blood Cell (WBC) Count 1.1 thou/uL (4.8-10.8)
[2021-05-31 06:22] LABS: ALT (SGPT) 25 U/L (8-55); AST (SGOT) 37 U/L (5-34); Albumin 2.6 g/dL (3.4-4.8); Alkaline Phosphatase 55 U/L (40-110); Anion Gap 10 mmol/L (10-20); BUN (Urea Nitrogen) 19 mg/dL (8.4-25.7); Bilirubin, Total 0.6 mg/dL (0.2-1.2); Calc. Creatinine Clearance 54 mL/min (70-130); Calcium 8.2 mg/dL (7.8-10.44); Carbon Dioxide 27 mmol/L (23-31); Chloride 97 mmol/L (98-107); Glucose 138 mg/dL (83-110); Magnesium 1.4 mg/dL (1.6-2.6); Potassium 3.4 mmol/L (3.5-5.1); Protein, Total 5.6 g/dL (5.8-8.1); Sodium 131 mmol/L (136-145)
[2021-05-31 06:25] LABS: Phosphorus 1.6 mg/dL (2.3-4.7)
[2021-05-31] MEDS ORDERED: Albuterol 200 PUFF (6.7GM INHALER) INH SCH (08:45)
[2021-05-31] MEDS: prednisoLONE 10 MG ODT TAB PO SCH (09:27)
[2021-05-31] MEDS: Pantoprazole 40 MG VIAL IVP SCH ×2 (09:27→21:56)
[2021-05-31] MEDS: PHOS-NAK 1 PKT PACK PO SCH ×3 (09:27→21:55)
[2021-05-31] MEDS: Folic Acid 1 MG TAB PO SCH (09:27)
[2021-05-31] MEDS: Megestrol Acetate 800 MG/20 ML UDCUP PO SCH (09:41)
[2021-05-31] MEDS: Polyethylene Glycol 3350 17 GM Packet PO SCH (09:42)
[2021-05-31] MEDS: Multivitamins CHEW w/Iron Tablet PO SCH (09:42)
[2021-05-31] MEDS ORDERED: Potassium Chloride 20 MEQ in Premix Bag 1 BAG IVPB SCH ×2 (10:45→20:15)
[2021-05-31] MEDS: Potassium Chloride 10 MEQ in Premix Bag 1 BAG IVPB SCH ×3 (11:10→13:39)
[2021-05-31] MEDS ORDERED: Metoprolol Tartrate 25 MG TAB PO SCH (11:30)
[2021-05-31] MEDS ORDERED: Magnesium 2 GM/50 ML 2 GM in Premix Bag 1 BAG IVPB SCH (12:00)
[2021-05-31] MEDS ORDERED: Diltiazem HCl 125 MG, Admixture Fee 1 EACH in Sodium Chloride 0.9% 100 ML IVPB SCH (12:15)
[2021-05-31] MEDS ORDERED: Diltiazem 125 MG in Sodium Chloride 0.9% 100 ML IVPB SCH (12:30)
[2021-05-31] MEDS ORDERED: ADENOSINE 60 MG/20 ML VIAL IVP SCH (12:30)
[2021-05-31] MEDS ORDERED: Digoxin 0.5 MG/2 ML AMP ONE (12:41)
[2021-05-31 12:50] LABS: Hemoglobin 10.1 g/dL (14.0-18.0); Mean Corpuscular HGB CONC 34.6 g/dL (32.0-36.0); Mean Corpuscular Hemoglobin 31.8 pg (27.0-31.0); Mean Corpuscular Volume 91.9 fL (78.0-98.0); Mean Platelet Volume 7.5 fL (7.4-10.4); Platelet Count 87 thou/uL (130-400); RBC Distribution Width 12.7 % (11.5-14.5); Red Blood Cell (RBC) Count 3.17 mill/uL (4.70-6.10); White Blood Cell (WBC) Count 0.9 thou/uL (4.8-10.8)
[2021-05-31 13:03] LABS: Anion Gap 14 mmol/L (10-20); BUN (Urea Nitrogen) 19 mg/dL (8.4-25.7); Calc. Creatinine Clearance 54 mL/min (70-130); Calcium 8.3 mg/dL (7.8-10.44); Carbon Dioxide 24 mmol/L (23-31); Chloride 95 mmol/L (98-107); Glucose 101 mg/dL (83-110); Magnesium 1.3 mg/dL (1.6-2.6); Potassium 3.1 mmol/L (3.5-5.1); Sodium 130 mmol/L (136-145)
[2021-05-31 13:08] LABS: Band 17 % (5-11); Dohle Bodies SLIGHT; Lymphocytes 27 % (21-51); MDiff Complete? YES; Metamyelocyte 1 % (0-0); Monocytes 12 % (0-10); Myelocyte 1 % (0-0); Neutrophil 36 % (42-75); Platelet Morphology Comment Appears Decreased; Polychromasia SLIGHT = 2-3 cells (100X) (0-2/hpf); Reactive Lymphocytes 6 % (0-10); Toxic Granulation SLIGHT; Vacuoles SLIGHT
[2021-05-31 13:14] LABS: Phosphorus 1.7 mg/dL (2.3-4.7)
[2021-05-31] MEDS ORDERED: Digoxin 0.5 MG/2 ML AMP SLOW IVP SCH ×6 (13:15→17:00)
[2021-05-31] MEDS ORDERED: Potassium Phosphate 15 MMOL in Sodium Chloride 0.9% 250 ML 250 ML IVPB SCH (13:30)
[2021-05-31 13:34] LABS: CKMB 3.4 ng/mL (0-6.6)
[2021-05-31 13:43] LABS: Hemoglobin 9.7 g/dL (14.0-18.0); Platelet Count 73 thou/uL (130-400)
[2021-05-31] MEDS ORDERED: Amiodarone 150 MG, Admixture Fee 1 EACH in Dextrose 5% in Water 100 ML IVPB SCH (15:45)
[2021-05-31 19:39] LABS: Anion Gap 14 mmol/L (10-20); BUN (Urea Nitrogen) 18 mg/dL (8.4-25.7); Calc. Creatinine Clearance 52 mL/min (70-130); Calcium 8.1 mg/dL (7.8-10.44); Carbon Dioxide 25 mmol/L (23-31); Chloride 96 mmol/L (98-107); Glucose 121 mg/dL (83-110); Magnesium 2.2 mg/dL (1.6-2.6); Potassium 3.3 mmol/L (3.5-5.1); Sodium 132 mmol/L (136-145)
[2021-05-31 19:41] LABS: Troponin I 3.782 ng/mL (< 0.028)
[2021-05-31 21:48] LABS: Hemoglobin 9.3 g/dL (14.0-18.0); Platelet Count 64 thou/uL (130-400)
[2021-05-31] MEDS: Amino Acids 4.25 %/Dextrose 5% 1,000 ML IV SCH (22:06)
[2021-06-01] MEDS: Mometasone 200 MCG/Formoterol 5 MCG 120 PUFF INHALER INH SCH ×2 (01:28→09:35)
[2021-06-01] MEDS: Amiodarone 450 MG, Admixture Fee 1 EACH in Dextrose 5% in Water 250 ML IVPB SCH ×2 (03:39→20:38)
[2021-06-01 03:51] LABS: Hemoglobin 8.8 g/dL (14.0-18.0); Platelet Count 75 thou/uL (130-400)
[2021-06-01 04:21] LABS: ALT (SGPT) 22 U/L (8-55); AST (SGOT) 37 U/L (5-34); Albumin 2.4 g/dL (3.4-4.8); Alkaline Phosphatase 48 U/L (40-110); Anion Gap 10 mmol/L (10-20); BUN (Urea Nitrogen) 18 mg/dL (8.4-25.7); Bilirubin, Total 0.7 mg/dL (0.2-1.2); Calc. Creatinine Clearance 52 mL/min (70-130); Carbon Dioxide 26 mmol/L (23-31); Chloride 99 mmol/L (98-107); Glucose 165 mg/dL (83-110); Protein, Total 5.4 g/dL (5.8-8.1); Sodium 132 mmol/L (136-145)
[2021-06-01] MEDS ORDERED: Magnesium 2 GM/50 ML 2 GM in Premix Bag 1 BAG IVPB SCH (05:00)
[2021-06-01] MEDS ORDERED: Potassium Chloride 20 MEQ in Premix Bag 1 BAG IVPB SCH (05:00)
[2021-06-01] MEDS ORDERED: Furosemide 20 MG/2 ML VIAL SLOW IVP SCH (05:15)
[2021-06-01] MEDS: PHOS-NAK 1 PKT PACK PO SCH ×3 (09:33→21:03)
[2021-06-01] MEDS: Folic Acid 1 MG TAB PO SCH (09:33)
[2021-06-01] MEDS: Megestrol Acetate 800 MG/20 ML UDCUP PO SCH (09:33)
[2021-06-01] MEDS: Multivitamins CHEW w/Iron Tablet PO SCH (09:33)
[2021-06-01] MEDS: Polyethylene Glycol 3350 17 GM Packet PO SCH (09:34)
[2021-06-01] MEDS: Pantoprazole 40 MG VIAL IVP SCH ×2 (09:49→20:44)
[2021-06-01] MEDS ORDERED: Dexamethasone 10 MG/ML VIAL SLOW IVP SCH (10:00)
[2021-06-01] MEDS ORDERED: Potassium Phosphate 15 MMOL in Sodium Chloride 0.9% 250 ML 250 ML IVPB SCH (10:00)
[2021-06-01] MEDS: Amino Acids 4.25 %/Dextrose 5% 1,000 ML IV SCH (12:04)
[2021-06-01] MEDS ORDERED: Albuterol 200 PUFF (6.7GM INHALER) INH PRN ×2 (12:12→12:15)
[2021-06-01 13:54] VITALS: BMI 15.0
[2021-06-01 15:53] VITALS: BP 151/83
[2021-06-01] MEDS: Morphine 4 MG/ML VIAL SLOW IVP PRN (20:34)
[2021-06-01] MEDS: Dexamethasone 10 MG/ML VIAL SLOW IVP SCH (20:44)
[2021-06-02] MEDS: Amino Acids 4.25 %/Dextrose 5% 1,000 ML IV SCH (00:01)
[2021-06-02] MEDS: Morphine 4 MG/ML VIAL SLOW IVP PRN ×4 (03:50→21:53)
[2021-06-02 04:06] LABS: #Lymphocytes 0.2 thou/uL (1.20-3.40); #Monocytes 0.2 thou/uL (0.11-0.59); #Neutrophils 2.9 thou/uL (1.40-6.50); %Basophils 0.4 % (0.0-1.0); %Eosinophils 0.1 % (0.0-10.0); %Lymphocytes 5.7 % (21.0-51.0); %Monocytes 4.9 % (0.0-10.0); %Neutrophils 88.9 % (42.0-75.0); Hemoglobin 10.2 g/dL (14.0-18.0); Mean Corpuscular HGB CONC 34.9 g/dL (32.0-36.0); Mean Corpuscular Hemoglobin 32.4 pg (27.0-31.0); Mean Corpuscular Volume 92.7 fL (78.0-98.0); Mean Platelet Volume 8.2 fL (7.4-10.4); Platelet Count 99 thou/uL (130-400); RBC Distribution Width 12.4 % (11.5-14.5); Red Blood Cell (RBC) Count 3.14 mill/uL (4.70-6.10); White Blood Cell (WBC) Count 3.2 thou/uL (4.8-10.8)
[2021-06-02 04:29] LABS: ALT (SGPT) 20 U/L (8-55); AST (SGOT) 27 U/L (5-34); Albumin 2.7 g/dL (3.4-4.8); Alkaline Phosphatase 59 U/L (40-110); Anion Gap 12 mmol/L (10-20); BUN (Urea Nitrogen) 26 mg/dL (8.4-25.7); Bilirubin, Total 0.6 mg/dL (0.2-1.2); Calc. Creatinine Clearance 53 mL/min (70-130); Calcium 8.4 mg/dL (7.8-10.44); Carbon Dioxide 24 mmol/L (23-31); Chloride 97 mmol/L (98-107); Globulin 3.7 g/dL (2.4-3.5); Glucose 190 mg/dL (83-110); Protein, Total 6.4 g/dL (5.8-8.1); Sodium 130 mmol/L (136-145)
[2021-06-02 04:54] LABS: Potassium 2.9 mmol/L (3.5-5.1)
[2021-06-02] MEDS ORDERED: Potassium Chloride 20 MEQ in Premix Bag 1 BAG IVPB SCH (05:30)
[2021-06-02] MEDS: Mometasone 200 MCG/Formoterol 5 MCG 120 PUFF INHALER INH SCH ×2 (05:35→08:02)
[2021-06-02 08:33] LABS: Magnesium 1.9 mg/dL (1.6-2.6); Phosphorus 1.5 mg/dL (2.3-4.7)
[2021-06-02] MEDS ORDERED: Sodium Chloride 0.65% Nasal 44 ML BOT EA NARE PRN (09:18)
[2021-06-02] MEDS: Dexamethasone 10 MG/ML VIAL SLOW IVP SCH ×2 (09:50→21:53)
[2021-06-02] MEDS: Potassium Chloride 20 MEQ in Premix Bag 1 BAG IVPB SCH ×2 (09:50→10:37)
[2021-06-02] MEDS: Megestrol Acetate 800 MG/20 ML UDCUP PO SCH (09:50)
[2021-06-02] MEDS: Folic Acid 1 MG TAB PO SCH (09:50)
[2021-06-02] MEDS: Pantoprazole 40 MG VIAL IVP SCH ×2 (09:51→21:53)
[2021-06-02] MEDS: PHOS-NAK 1 PKT PACK PO SCH ×3 (09:51→21:55)
[2021-06-02] MEDS: Multivitamins CHEW w/Iron Tablet PO SCH (09:51)
[2021-06-02] MEDS: Polyethylene Glycol 3350 17 GM Packet PO SCH (09:51)
[2021-06-02] MEDS: Amiodarone 450 MG, Admixture Fee 1 EACH in Dextrose 5% in Water 250 ML IVPB SCH (09:51)
[2021-06-02] MEDS ORDERED: Potassium Phosphate 15 MMOL in Sodium Chloride 0.9% 100 ML IVPB SCH (10:00)
[2021-06-02 16:32] LABS: Anion Gap 11 mmol/L (10-20); BUN (Urea Nitrogen) 26 mg/dL (8.4-25.7); Calc. Creatinine Clearance 52 mL/min (70-130); Calcium 8.4 mg/dL (7.8-10.44); Carbon Dioxide 24 mmol/L (23-31); Chloride 98 mmol/L (98-107); Glucose 136 mg/dL (83-110); Magnesium 1.9 mg/dL (1.6-2.6); Potassium 3.5 mmol/L (3.5-5.1); Sodium 129 mmol/L (136-145)
[2021-06-02 16:36] LABS: Phosphorus 1.4 mg/dL (2.3-4.7)
[2021-06-02] MEDS ORDERED: Magnesium 2 GM/50 ML 2 GM in Premix Bag 1 BAG IVPB SCH (17:00)
[2021-06-02] MEDS: Amino Acids 4.25 %/Dextrose 5% 2,000 ML IV SCH (17:52)
[2021-06-03] MEDS: Morphine 4 MG/ML VIAL SLOW IVP PRN ×5 (02:32→22:39)
[2021-06-03 06:24] LABS: ALT (SGPT) 19 U/L (8-55); AST (SGOT) 20 U/L (5-34); Albumin 2.7 g/dL (3.4-4.8); Alkaline Phosphatase 57 U/L (40-110); Anion Gap 12 mmol/L (10-20); BUN (Urea Nitrogen) 27 mg/dL (8.4-25.7); Bilirubin, Total 0.6 mg/dL (0.2-1.2); Calc. Creatinine Clearance 48 mL/min (70-130); Calcium 8.5 mg/dL (7.8-10.44); Carbon Dioxide 24 mmol/L (23-31); Chloride 102 mmol/L (98-107); Globulin 3.5 g/dL (2.4-3.5); Glucose 144 mg/dL (83-110); Potassium 4.2 mmol/L (3.5-5.1); Protein, Total 6.2 g/dL (5.8-8.1); Sodium 134 mmol/L (136-145)
[2021-06-03] MEDS: Mometasone 200 MCG/Formoterol 5 MCG 120 PUFF INHALER INH SCH ×3 (07:30→18:17)
[2021-06-03 09:32] LABS: Magnesium 2.2 mg/dL (1.6-2.6); Phosphorus 2.7 mg/dL (2.3-4.7)
[2021-06-03] MEDS: Dexamethasone 10 MG/ML VIAL SLOW IVP SCH ×2 (10:29→21:07)
[2021-06-03] MEDS: Pantoprazole 40 MG VIAL IVP SCH ×2 (10:30→21:07)
[2021-06-03] MEDS: Megestrol Acetate 800 MG/20 ML UDCUP PO SCH (10:30)
[2021-06-03] MEDS: Multivitamins CHEW w/Iron Tablet PO SCH (10:30)
[2021-06-03] MEDS: Folic Acid 1 MG TAB PO SCH (10:30)
[2021-06-03] MEDS: Polyethylene Glycol 3350 17 GM Packet PO SCH (10:30)
[2021-06-03] MEDS: PHOS-NAK 1 PKT PACK PO SCH ×3 (10:30→21:07)
[2021-06-03] MEDS ORDERED: diphenhydrAMINE 50 MG/ML VIAL IVP SCH (17:30)
[2021-06-03] MEDS: Amiodarone 450 MG, Admixture Fee 1 EACH in Dextrose 5% in Water 250 ML IVPB SCH ×2 (18:18→20:40)
[2021-06-03] MEDS: Amino Acids 4.25 %/Dextrose 5% 2,000 ML IV SCH (18:39)
[2021-06-04] MEDS: Morphine 4 MG/ML VIAL SLOW IVP PRN ×3 (01:21→10:06)
[2021-06-04] MEDS: Mometasone 200 MCG/Formoterol 5 MCG 120 PUFF INHALER INH SCH (05:31)
[2021-06-04] MEDS: Pantoprazole 40 MG VIAL IVP SCH (10:13)
[2021-06-04] MEDS: Dexamethasone 10 MG/ML VIAL SLOW IVP SCH (10:13)
[2021-06-04] MEDS: Folic Acid 1 MG TAB PO SCH (10:14)
[2021-06-04] MEDS: PHOS-NAK 1 PKT PACK PO SCH (10:15)
[2021-06-04] MEDS: Polyethylene Glycol 3350 17 GM Packet PO SCH (10:15)
[2021-06-04] MEDS: Multivitamins CHEW w/Iron Tablet PO SCH (10:15)
[2021-06-04] MEDS: Megestrol Acetate 800 MG/20 ML UDCUP PO SCH (10:15)
[2021-06-04 12:18] VITALS: TEMP 98.4
== END 2021-06-04 14:11 | disposition hospice, inpatient (51) | DRG 177 ==
LOC: ERS 09:12 → ERHOLD 14:25 → T4-B 21:28 → OBSVTOIN 05-25 18:02 → IMCU/EMU 05-31 12:51
PROVIDERS: ADMIT Family Medicine; ATTEND Family Medicine
PROC: 8E0ZXY6 Isolation (ICD-10-PCS; principal; 2021-05-25)
PROC: 30233R1 Transfusion of Nonautologous Platelets into Peripheral Vein, Percutaneous Approach (ICD-10-PCS; 2021-05-25)
PROC: 30233N1 Transfusion of Nonautologous Red Blood Cells into Peripheral Vein, Percutaneous Approach (ICD-10-PCS; 2021-05-25)
DX: U07.1 COVID-19 (principal); J12.82 Pneumonia due to coronavirus disease 2019; D61.810 Antineoplastic chemotherapy induced pancytopenia; J96.21 Acute and chronic respiratory failure with hypoxia; E43 Unspecified severe protein-calorie malnutrition; C34.90 Malignant neoplasm of unspecified part of unspecified bronchus or lung; R64 Cachexia; E87.1 Hypo-osmolality and hyponatremia; Z68.1 Body mass index [BMI] 19.9 or less, adult; R65.10 Systemic inflammatory response syndrome (SIRS) of non-infectious origin without acute organ dysfunction; Z51.5 Encounter for palliative care; Z66 Do not resuscitate; E86.0 Dehydration; W18.30XA Fall on same level, unspecified, initial encounter; S01.81XA Laceration without foreign body of other part of head, initial encounter; D70.1 Agranulocytosis secondary to cancer chemotherapy; R13.10 Dysphagia, unspecified; J43.9 Emphysema, unspecified; T45.1X5A Adverse effect of antineoplastic and immunosuppressive drugs, initial encounter; I10 Essential (primary) hypertension; I48.0 Paroxysmal atrial fibrillation; E87.70 Fluid overload, unspecified; E87.6 Hypokalemia; E83.39 Other disorders of phosphorus metabolism; Z87.891 Personal history of nicotine dependence; Z79.899 Other long term (current) drug therapy; Z98.890 Other specified postprocedural states
CPT/HCPCS: 36415; 36430; 70450; 71045; 72125; 74018; 80053; 82274; 82553; 82607; 82746; 83690; 83735; 83880; 84100; 84145; 84443; 84484; 85014; 85018; 85025; 85049; 85610; 85730; 86850; 86900; 86901; 93005; 93010; 93306; 94760; 96374; 96375; C9113; G0378; J0153; J0282; J0692; J1100; J1160; J1200; J1447; J1940; J2270; J2405; J3370; J3475; J3480; J3490; J7030; J7050; J7070; J7120; J7510; P9016; P9035; U0002

== ENCOUNTER 2021-06-04 14:14 | Inpatient (IN) | payer OTHER ==
[2021-06-04 14:49] VITALS: BMI 13.9
[2021-06-04] MEDS: Scopolamine 1.5 mg/72 hour Patch TOP SCH (17:27)
[2021-06-04] MEDS: Lorazepam 2 MG/ML VIAL SLOW IVP PRN (20:01)
[2021-06-04] MEDS: Morphine 4 MG/ML VIAL SLOW IVP PRN (23:50)
[2021-06-05] MEDS: Lorazepam 2 MG/ML VIAL SLOW IVP PRN ×3 (01:30→13:53)
[2021-06-05] MEDS: Morphine 4 MG/ML VIAL SLOW IVP PRN ×4 (09:48→21:08)
[2021-06-05] MEDS: Haloperidol Lactate 5 MG/ML VIAL SLOW IVP PRN ×2 (09:51→17:06)
[2021-06-06] MEDS: Lorazepam 2 MG/ML VIAL SLOW IVP PRN ×3 (01:50→22:10)
[2021-06-06] MEDS: Morphine 4 MG/ML VIAL SLOW IVP PRN ×5 (06:07→20:36)
[2021-06-06] MEDS: Haloperidol Lactate 5 MG/ML VIAL SLOW IVP PRN ×2 (13:19→17:00)
[2021-06-07] MEDS: Haloperidol Lactate 5 MG/ML VIAL SLOW IVP PRN ×4 (01:26→16:21)
[2021-06-07] MEDS: Morphine 4 MG/ML VIAL SLOW IVP PRN ×4 (05:19→16:21)
[2021-06-07 20:13] VITALS: BP 83/53; TEMP 98.2
[2021-06-07] MEDS: Scopolamine 1.5 mg/72 hour Patch TOP SCH (20:13)
== END 2021-06-08 02:40 | disposition expired | DRG 951 ==
LOC: IMCU/EMU 14:14 → T4-B 22:42
PROVIDERS: ADMIT Family Medicine; ATTEND Family Medicine
DX: Z51.5 Encounter for palliative care (principal); E43 Unspecified severe protein-calorie malnutrition; U07.1 COVID-19; J12.82 Pneumonia due to coronavirus disease 2019; J96.01 Acute respiratory failure with hypoxia; C34.90 Malignant neoplasm of unspecified part of unspecified bronchus or lung; K92.2 Gastrointestinal hemorrhage, unspecified; Z68.1 Body mass index [BMI] 19.9 or less, adult; F17.210 Nicotine dependence, cigarettes, uncomplicated; E86.0 Dehydration; D70.1 Agranulocytosis secondary to cancer chemotherapy; T45.1X5A Adverse effect of antineoplastic and immunosuppressive drugs, initial encounter; I48.91 Unspecified atrial fibrillation; Z79.899 Other long term (current) drug therapy
CPT/HCPCS: J1630; J2060; J2270